=== PATIENT | female | born 1955 | race Caucasian/White ===

== ENCOUNTER 2018-05-15 19:30 | Outpatient (CLI) | payer BC | END 2018-05-15 19:31 | disposition home or self-care (01) | LOC: SLEEPLAB 19:30 | PROVIDERS: ATTEND Internal Medicine Pulmonary Disease | DX: G47.33 Obstructive sleep apnea (adult) (pediatric) (principal); R53.83 Other fatigue; E66.9 Obesity, unspecified; I11.0 Hypertensive heart disease with heart failure; I50.9 Heart failure, unspecified | CPT/HCPCS: 95811 ==

== ENCOUNTER 2018-06-21 14:04 | Outpatient (CLI) | payer BC | END 2018-06-21 14:05 | disposition home or self-care (01) | LOC: BICMAMMO 14:04 | PROVIDERS: ATTEND Nurse Practitioner Family | DX: Z12.31 Encounter for screening mammogram for malignant neoplasm of breast (principal); R92.1 Mammographic calcification found on diagnostic imaging of breast | CPT/HCPCS: 77063; 77067 ==

== ENCOUNTER 2018-06-28 09:44 | Outpatient (CLI) | payer BC | END 2018-06-28 09:45 | disposition home or self-care (01) | LOC: BICMAMMO 09:44 | PROVIDERS: ATTEND Nurse Practitioner Family | DX: R92.1 Mammographic calcification found on diagnostic imaging of breast (principal) | CPT/HCPCS: G0279 ==

== ENCOUNTER → 2018-07-16 | Day surgery (SDC) | payer BC ==
--- NOTE | 2018-07-16 10:47 | MMO ---
SPECIMEN RADIOGRAPH: Date: 07/16/18 INDICATION: Status post ultrasound guided left breast biopsy, calcifications of deep central left breast. FINDINGS: Specimen radiographs are submitted. There is evidence of calcification within the radiographed specim ens. IMPRESSION: Specimen radiographs reveal calcifications within the biopsied, radiographed specimens. POS: JOSE
--- NOTE | 2018-07-16 10:50 | MMO ---
POSTPROCEDURAL DIAGNOSTIC LEFT MAMMOGRAM: Date: 07/16/18 CLINICAL HISTORY: Status post ultrasound guided biopsy of left breast, calcifications of the deep central left breast. FINDINGS: Two views of the left breast reveal evidence of recent biopsy with air density traversing the central left breast, which does approximate the site of clustered calcifications of interest, centrally and deep within the left breast. Biopsy marking clip was deployed, which is located just posterior, and c ephalad to the clustering. This clip does not reside within the notable air tract from the biopsy and therefore may be related to clip migration. IMPRESSION: Status post left breast biopsy with post biopsy findings, and marking clip of the left breast. POS: JOSE
--- NOTE | 2018-07-16 11:29 | ULT ---
DIAGNOSTIC LEFT MAMMOGRAM: Date: 07/16/18 INDICATION: Left breast calcifications, deep central left breast. Patient had presented for stereotactic biopsy, although due to technical factors, stereotactic biopsy could not be performed. Therefore, patient was transferred to the ultrasound department in an attemp t to localize the calcifications within the left breast. FINDINGS: Deep within the central left breast, there is a grouping of calcifications identified. IMPRESSION: BIRADS 4: Suspicious Abnormality - Biopsy Should Be Considered Cluster of calcifications deep within the left breast in a region operations engineer to mammographic calci fications are present, warranting further evaluation with biopsy. Ultrasound guided biopsy will be performed, subsequently. POS: JOSE
--- NOTE | 2018-07-16 11:53 | ULT ---
ULTRASOUND GUIDED LEFT BREAST BIOPSY ULTRASOUND GUIDED LEFT BIOPSY MARKING CLIP PLACEMENT: Date: 07/16/18 INDICATION: Calcifications not amenable to stereotactic biopsy, with localization performed sonographically. Calc ifications reside within the deep central left breast. PROCEDURE: Informed consent was obtained from the patient. The patient was escorted to the procedural suite and placed in a supine position. The left breast was prepped and draped in the standard sterile fashion. Topical anesthesia was achieved with buffered 1% lidocaine. A small skin incision was made. Using a 1 3.5 gauge trocar, advancement within the left breast to the site of calcifications was performed and documented with imaging. The inner stylette of the trocar was removed and was exchanged for a 14 gaug e biopsy needle. Subsequently, four core specimens were acquired, with imaging stored for documentati on. The needle and trocar were then removed. Specimens were sent to radiography for confirmation of c alcifications. Subsequently, biopsy marking clip was advanced to and deployed within the site of calc ifications. This was confirmed with imaging and stored for documentation. No procedural complications. Postprocedural radiography of the specimens did reveal calcifications present. IMPRESSION: Technically successful ultrasound guided biopsy of the left breast. Pathology results are pending. Alan escobedo will be notified of results when they are received. POS: JOSE
== END ==
LOC: MAMMO 06:46
PROVIDERS: ATTEND Nurse Practitioner Family
PROC: 0HBU3ZX Excision of Left Breast, Percutaneous Approach, Diagnostic (ICD-10-PCS; principal; 2018-07-16)
DX: N60.92 Unspecified benign mammary dysplasia of left breast (principal); N60.32 Fibrosclerosis of left breast; Z79.899 Other long term (current) drug therapy
CPT/HCPCS: 19083; 76098; 88305; 88341; 88342

== ENCOUNTER 2018-07-19 07:24 | Inpatient (IN) | payer BC ==
[~2018-07-19 07:24] MED LIST: Lidocaine 1% PF 5 ML VIAL ONE; Sodium Bicarbonate 2.5 MEQ/5 ML VIAL ONE
[2018-07-19 08:09] LABS: #Eosinphils 0.1 thou/uL (0.0-0.7); #Lymphocytes 1.5 thou/uL (1.20-3.40); #Monocytes 0.9 thou/uL (0.11-0.59); #Neutrophils 11.3 thou/uL (1.40-6.50); %Basophils 0.1 % (0.0-1.0); %Monocytes 6.8 % (0.0-10.0); %Neutrophils 81.2 % (42.0-75.0); Hemoglobin 15.5 g/dL (12.0-16.0); Mean Corpuscular HGB CONC 32.2 g/dL (32.0-36.0); Mean Corpuscular Hemoglobin 28.5 pg (27.0-31.0); Mean Corpuscular Volume 88.6 fL (78.0-98.0); Mean Platelet Volume 8.7 fL (7.4-10.4); Platelet Count 182 thou/uL (130-400); RBC Distribution Width 15.3 % (11.5-14.5); Red Blood Cell (RBC) Count 5.44 mill/uL (4.20-5.40); White Blood Cell (WBC) Count 13.9 thou/uL (4.8-10.8)
[2018-07-19 08:33] LABS: ALT (SGPT) 231 U/L (8-55); AST (SGOT) 139 U/L (5-34); Albumin 3.7 g/dL (3.4-4.8); Alkaline Phosphatase 302 U/L (40-150); Anion Gap 16 mmol/L (10-20); BUN (Urea Nitrogen) 10 mg/dL (9.8-20.1); Bilirubin, Total 2.2 mg/dL (0.2-1.2); CK (CPK) 33 U/L (29-168); Calc. Creatinine Clearance 0 mL/min (70-130); Calcium 9.3 mg/dL (7.8-10.44); Carbon Dioxide 23 mmol/L (23-31); Chloride 104 mmol/L (98-107); Estimated GFR-MDRD 86; Globulin 2.8 g/dL (2.4-3.5); Glucose 135 mg/dL (80-115); Lipase 435 U/L (8-78); Potassium 3.9 mmol/L (3.5-5.1); Protein, Total 6.5 g/dL (6.0-8.3); Sodium 139 mmol/L (136-145)
[2018-07-19 08:34] LABS: CKMB 0.8 ng/mL (0-6.6); Troponin I Less than 0.010 ng/mL (< 0.028)
[2018-07-19] MEDS ORDERED: Ondansetron HCl/PF 4 MG/2 ML Vial ONE (09:47)
--- NOTE | 2018-07-19 09:52 | RAD ---
FRONTAL VIEW CHEST: Date: 07/19/18 INDICATION: Epigastric pain. COMPARISON: 03/23/18. FINDINGS: No free air beneath the hemidiaphragms. Cardiac silhouette is prominent, as is pulmonary vasculature. There is interstitial prominence of each lung. Chest otherwise similar. IMPRESSION: Evidence of fluid overload, likely related to CHF. Correlate clinically. POS: JOSE
[2018-07-19 10:05] LABS: Blood, Urine Negative (Negative); Leukocyte Negative (Negative); Protein, Urine (Dipstick) Trace mg/dL (Neg-Trace); pH, Urine 5.5 (5.0-9.0)
[2018-07-19 10:12] LABS: Clarity Cloudy (Clear)
[2018-07-19 10:13] LABS: Bilirubin Unable to Interpret (Negative); Glucose, Urine (Dipstick) Unable to Interpret mg/dL (Negative); Nitrite Unable to Interpret (Negative)
[2018-07-19 10:15] LABS: Specific Gravity, Urine 1.019 (1.002-1.036)
[2018-07-19 10:33] LABS: Bacteria/HPF 1+ HPF (None Seen); Crystals/HPF 4+ AMORPH URATES HPF (Negative); Hyaline Casts/LPF NONE SEEN LPF (0-3 Hyaline); RBC/HPF 0-3 HPF (0-3); WBC/HPF 0-3 HPF (0-3)
--- NOTE | 2018-07-19 11:35 | ULT ---
ULTRASOUND ABDOMEN LIMITED: (RIGHT UPPER QUADRANT) Date: 07/19/18 HISTORY: 63-year-old female with right upper quadrant abdominal pain. FINDINGS: Visualization of the right lobe of the liver is very poor because of body habitus. The left lobe of t he liver has normal echogenicity. Common duct caliber is normal, 4 mm. There is a dependent fine layer of numerous tiny mobile gallstones within the body and fundus of the gallbladder. No sonographic Peguero's sign. No pericholecystic fluid. No definite gallbladder wall thi ckening. Right kidney has no hydronephrosis. Pancreas has nonspecific sonographic appearance. IMPRESSION: Positive for cholelithiasis. LEEROY Ruiz POS: CET
[2018-07-19] MEDS ORDERED: Levofloxacin 500 mg/D5W 100 ml Premix Bag ONE (11:36)
[2018-07-19] MEDS ORDERED: Fentanyl 100 MCG/2 ML VIAL ONE (12:17)
[2018-07-19] MEDS ORDERED: Ketorolac Tromethamine 30 MG/ML VIAL ONE (12:27)
[2018-07-19] MEDS ORDERED: Scopolamine 1.5 mg/72 hour Patch ONE (12:27)
[2018-07-19] MEDS ORDERED: Bupivacaine HCl 0.5%/Epinephrine 1:200,000/PF 30 ml Vial ONE (12:28)
[2018-07-19] MEDS ORDERED: Iothalamate Meglumine 60% 50 ML VIAL FS ONE ×3 (12:28→14:06)
[2018-07-19] MEDS ORDERED: HumaLOG 300 UNITS/3 ML VIAL SC PRN (14:11)
[2018-07-19] MEDS ORDERED: Dextrose 5% in Water 1,000 ML IV PRN (14:11)
[2018-07-19] MEDS ORDERED: Ondansetron ODT 4 MG TAB PO PRN (14:11)
[2018-07-19] MEDS ORDERED: hydrALAZINE 20 MG/ML VIAL SLOW IVP PRN (14:11)
[2018-07-19] MEDS ORDERED: Ondansetron HCl/PF 4 MG/2 ML Vial IVP PRN ×2 (14:11→15:05)
[2018-07-19] MEDS ORDERED: Dextrose 50% Abboject 50 ML SYRINGE SLOW IVP PRN (14:11)
[2018-07-19] MEDS ORDERED: Ketorolac Tromethamine 30 MG/ML VIAL IVP PRN (14:16)
[2018-07-19] MEDS ORDERED: Acetaminophen 500 MG TAB PO PRN (14:16)
[2018-07-19] MEDS ORDERED: traMADol HCl 50 MG TAB PO PRN ×2 (14:16)
[2018-07-19] MEDS ORDERED: SUGAMMADEX SODIUM 200 MG/2 ML VIAL ONE (14:55)
[2018-07-19] MEDS ORDERED: Promethazine HCl 25 MG/ML VIAL IM PRN (15:05)
[2018-07-19] MEDS ORDERED: Promethazine HCl 25 MG/ML VIAL SLOW IVP PRN (15:05)
--- NOTE | 2018-07-19 15:20 | OP ---
PREOPERATIVE DIAGNOSES: Morbid obesity, acute and chronic cholecystitis and cholelithiasis, possible choledocholithiasis. POSTOPERATIVE DIAGNOSES: Chronic and acute cholecystitis, cholelithiasis, choledocholithiasis. PROCEDURE: Laparoscopic video cholecystectomy, positive cholangiograms, using fluoroscopy. Note con trast into the duodenum, but there were multiple filling defects in the common bile duct, which was d ilated more so than appreciated on ultrasound. SURGEON: Dr. Lele Cantu. ANESTHESIA: General. Local 0.5% Marcaine with epinephrine 30 mL PROCEDURE IN DETAIL: The patient was taken to the operating room, where under general anesthesia, ab roberts was prepared with ChloraPrep and draped in routine fashion. The patient had a prior supraumbil ical incision for an incarcerated hernia, thus a right midclavicular subcostal incision made. Pneumo peritoneum to 15 mmHg obtained with the Veress needle, replacing it with a 5 port and video laparosco pe inserted. There were adhesions about the umbilicus. Thus, a right upper abdominal paramedian inc ision made and a 5 port placed under laparoscopic visualization. Right subxiphoid incision made and 11 port placed. Right lateral subcostal incision made, a 5 port placed video laparoscope moved to th e lower abdominal incision and liver appeared to be normal despite for morbid obesity. Fundus of gal lbladder grasped and reflected cephalad. Infundibulum grasped and reflected laterally. Cystic arter y and duct dissected free carefully. Critical view obtained. Cystic artery and duct identified. Cy stic artery double clipped proximally. Cystic duct singly clipped on the gallbladder side. Opening made in the cystic duct and cholangiocath inserted and cholangiogram was obtained revealing free flow of contrast into the duodenum with dilated common bile and common hepatic duct, left and right hepat ic duct with filling defects, multiple in the common bile duct. This was flushed with saline. Chola ngiogram was repeated revealing the same information. Cholangiocath removed. Cystic duct stump doub ly clipped and divided. Gallbladder dissected free from liver bed obtaining good hemostasis prior to division of final felt attachments. Gallbladder and contents removed and submitted to pathology wer e multiple small stones. Liver bed inspected. Good hemostasis noted and obtained with the cautery. Good hemostasis ensured. All instruments removed and all skin incisions approximated with interrupt ed subdermal 4-0 Monocryl after pneumoperitoneum and irrigant evacuated. The patient tolerated the p rocedure well. The patient was transported to the Endo suite for Dr. Bauer to performed the ERCP.
--- NOTE | 2018-07-19 15:22 | RAD ---
INTRAOPERATIVE CHOLANGIOGRAM: DATE: 07/19/18. HISTORY: Laparoscopic cholecystectomy with cholangiogram. FINDINGS: Two intraoperative fluoroscopic images of the right upper quadrant are submitted for interpretation. Multiple surgical instruments overlie the right upper quadrant. Surgical clips are seen in the righ t upper quadrant. The cystic duct is cannulated. There is opacification of intra- and extrahepatic bile ducts which are mildly prominent in size. There are multiple round filling defects seen within the distal aspect of the common duct. These filling defects may be related to either retained calcul i or possibly related to air bubbles. There is evidence of free spill of contrast into the small bow el. No additional filling defects are seen within the common duct. IMPRESSION: 1. Multiple filling defects within the distal common duct which may be attributable to air bubbles o r possibly related to calculi within the distal common duct. Correlation with intraoperative finding s is recommended. There is evidence of free spill of contrast into the duodenum. 2. Suggestion of mild dilatation of the common duct and most proximal intrahepatic bile ducts. POS: CICI
--- NOTE | 2018-07-19 15:51 | RAD ---
SINGLE VIEW FROM ERCP: Comparison: None. FINDINGS: The single submitted image demonstrates cannulization in the region of the common bile duct extending into the right hepatic biliary system. Surgical clips are seen within the left upper quadrant which may represent sequellae of prior cholecystectomy. IMPRESSION: Single intraprocedure fluoroscopic image of ERCP. POS: JOSE
--- NOTE | 2018-07-19 16:49 | OP ---
PREOPERATIVE DIAGNOSIS: Choledocholithiasis by intraoperative cholangiogram. PROCEDURE IN DETAIL: After informed consent was obtained, the patient placed in left lateral decubit us position. Anesthesia was administered per the Anesthesia Department for side-viewing endoscope wa s inserted into the esophagus under direct visualization with ease and passed to the second portion o f the duodenum with ease. Second portion of the duodenum was normal. No mucosal abnormalities were noted. A tapered-tip cannula was inserted in the common duct and cholangiogram revealed filling defe cts. A large sphincterotomy was performed and the duct was swept with a 12 mm balloon revealing mult iple stones. Occlusion cholangiogram performed showed no filling defects. ASSESSMENT: 1. Choledocholithiasis. 2. Status post sphincterotomy and stone extraction. RECOMMENDATIONS: Recheck LFTs.
[2018-07-19 17:10] VITALS: BMI 61.4
--- NOTE | 2018-07-19 18:02 | CON ---
DATE OF CONSULTATION: 07/19/2018 HISTORY OF PRESENT ILLNESS: Patient is a 63-year-old female undergoing a laparoscopic chol ecystectomy by Dr. Cantu today and was noted to have an abnormal intraoperative cholangiogram showin g multiple filling defects. She is unable to add the history of present illness at this time, she is intubated from surgery. PAST MEDICAL HISTORY: Significant for diabetes mellitus, morbid obesity, hypertension. PAST SURGICAL HISTORY: Appendectomy, hysterectomy, herniorrhaphy, breast biopsy, right knee surgery, right foot surgery. ALLERGIES: No known allergies. MEDICATIONS: Include Toprol 50 mg 1 p.o. q. day, losartan 50 mg p.o. b.i.d., metformin 500 mg 1 p.o. b.i.d., spironolactone 25 mg 1 p.o. q. day, Lasix 40 mg 1 p.o. q. day. SOCIAL HISTORY: The patient does not smoke or drink. She is a retired teacher. FAMILY HISTORY: Negative for GI or liver disease. REVIEW OF SYSTEMS: Unobtainable. PHYSICAL EXAMINATION: GENERAL: She is an obese female, intubated from the surgery. HEENT: Shows orotracheal tube in place. NECK: Supple. CHEST: Clear. CARDIOVASCULAR: Regular rate and rhythm. ABDOMEN: Soft, nontender. She has a bandaged area of where cholecystectomy was performed. EXTREMITIES: Normal. RECTAL: Deferred. LABORATORY DATA: Shows a white blood cell count 13.9, hemoglobin 15.5, hematocrit 48.2. Chemistries show a glucose 135, total bilirubin 2.2, AST 139, ALT 231, alkaline phosphatase 302. Lipase 435. ASSESSMENT: 1. Choledocholithiasis by intraoperative cholangiogram. 2. Mild lipase elevation. 3. Diabetes mellitus. 4. Hypertension. RECOMMENDATIONS: Proceed with ERCP.
[2018-07-19] MEDS ORDERED: Enoxaparin Sodium 40 MG/0.4 ML SYRINGE SC SCH (21:00)
[2018-07-19] MEDS: Famotidine 20 MG TAB PO SCH (22:03)
[2018-07-19] MEDS: Lactated Ringer's 1,000 ML IV SCH ×2 (22:03→22:23)
--- NOTE | 2018-07-19 23:47 | HP ---
HISTORY OF PRESENT ILLNESS: Arlet Walker is a 63-year-old female, morbidly obese, 173 kg, 382 pounds, two-week history of right upper quadrant epigastric pain, nausea, and back radiation. her med ications this morning. Otherwise, there has been n.p.o. She was seen in the emergency room, white c ount 13, hemoglobin 15, bilirubin 2.2. AST, ALT 139 and 231 respectively, alkaline phosphatase 302, lipase 435, undergoing an ultrasound of her abdomen noting cholecystitis and cholelithiasis with comm on bile duct 4 mm. Nonspecific sonographic appearance. No hydronephrosis. ALLERGIES: None. TOBACCO: None. ALCOHOL: None. MEDICATIONS: Metoprolol 25 mg a day, which she took this morning. Losartan 25 mg twice a day, metfo rmin 500 mg twice a day, spironolactone 25 mg a day, Lasix 40 mg a day. PAST MEDICAL HISTORY: Hypertension, diabetes mellitus, chronic venous stasis disease, history of low er extremity cellulitis related to that. The patient was hospitalized earlier this year diagnosed wi th congestive heart failure, had an echocardiogram read by Dr. Martinez on 03/24/2018. Normal appear ing EF, difficult to access due to obesity, but she did have moderate tricuspid regurgitation. CAT s can of abdomen and pelvis on 09/08/2016, ventral hernia, small bowel and colon, umbilical area, diver ticulosis. PAST SURGICAL HISTORY: Transvaginal hysterectomy without oophorectomy, incarcerated umbilical hernia repair with mesh on 09/08/2016, colonoscopy a year ago. FAMILY HISTORY: Grandfather and father had coronary disease. . REVIEW OF SYSTEMS: [place] noncontributory. She has been seeing Dr. Martinez in his office. Morb id obesity, 173 kilograms, currently 382 pounds. She was 510 pounds last year, but lost 120 pounds i ntentionally and she works out at the [employer] with [employer] 2-3 times a week and has been changing her dietary intake, successfully losing weight. PHYSICAL EXAMINATION: VITAL SIGNS: 173 kg, 382 pounds. HEENT: Unremarkable. LUNGS: Clear to auscultation. CARDIAC: Regular rate and rhythm without murmur or gallop. ABDOMEN: Soft, tenderness in right upper quadrant with guarding rebound, positive Peguero's. EXTREMITIES: Unremarkable. Chronic venous stasis disease, morbid obesity. NEUROLOGICAL: Intact. No focal deficits. ASSESSMENT AND PLAN: 1. Acute cholecystitis. Recommend laparoscopic video cholecystectomy, common bile duct is 4 mm. Li lon function tests are elevated, suggesting acute cholecystitis. She has received Levaquin, scopolam ine patch, Toradol, Ofirmev, taken Hibiclens bath and plan is for laparoscopic cholecystectomy, chola ngiogram, possible ERCP with Dr. Bauer if indicated based on cholangiograms. Risk of infection, bleed ing, visceral injury explained. Chance of an open operation discussed. Possibility of ERCP with adh erent risk of pancreatitis discussed. 2. Probably some degree of biliary pancreatitis. 3. Morbid obesity with intentional weight loss 120 pounds. Continue weight loss efforts. 4. Diabetes mellitus, type 2. 5. Hypertension. 6. Chronic venous stasis disease. 7. Diagnosed with congestive heart failure recently, followed by Dr. Martinez.
[2018-07-20 06:15] LABS: ALT (SGPT) 215 U/L (8-55); AST (SGOT) 118 U/L (5-34); Albumin 3.5 g/dL (3.4-4.8); Alkaline Phosphatase 264 U/L (40-150); Anion Gap 12 mmol/L (10-20); BUN (Urea Nitrogen) 12 mg/dL (9.8-20.1); Calc. Creatinine Clearance 224 mL/min (70-130); Calcium 9.3 mg/dL (7.8-10.44); Carbon Dioxide 27 mmol/L (23-31); Chloride 101 mmol/L (98-107); Estimated GFR-MDRD 83; Globulin 3.4 g/dL (2.4-3.5); Glucose 116 mg/dL (80-115); Lipase 34 U/L (8-78); Protein, Total 6.9 g/dL (6.0-8.3); Sodium 136 mmol/L (136-145)
[2018-07-20 06:36] LABS: Band 11 % (5-11); Lymphocytes 8 % (21-51); MDiff Complete? YES; Mean Corpuscular HGB CONC 31.6 g/dL (32.0-36.0); Mean Corpuscular Hemoglobin 28.1 pg (27.0-31.0); Mean Corpuscular Volume 89.1 fL (78.0-98.0); Mean Platelet Volume 8.7 fL (7.4-10.4); Monocytes 3 % (0-10); Neutrophil 78 % (42-75); PLT Morphology Comment Appears Adequate; Platelet Count 200 thou/uL (130-400); RBC Distribution Width 15.4 % (11.5-14.5); Red Blood Cell (RBC) Count 5.34 mill/uL (4.20-5.40); White Blood Cell (WBC) Count 14.8 thou/uL (4.8-10.8)
[2018-07-20] MEDS: Famotidine 20 MG TAB PO SCH (08:27)
[2018-07-20 08:48] VITALS: BP 119/64; TEMP 98.2
[2018-07-20] MEDS ORDERED: Polyethylene Glycol 3350 17 GM Packet PO SCH (09:00)
--- NOTE | 2018-07-20 09:13 | PRG ---
DATE OF SERVICE: 07/20/2018 SUBJECTIVE: Ms. Arlet Walker is doing well today. She is tolerating her diet. She denies any signif icant pain. She has been ambulating. PHYSICAL EXAMINATION: VITAL SIGNS: 97.7 degrees, 79, 19, 128/69. LABORATORY DATA: This morning, her white count is 14, hemoglobin 15. Sodium 136, potassium 4.0, BUN 12, creatinine 0.71. Bilirubin 1. AST and ALT are at 118 and 215, respectively. Lipase 34. ASSESSMENT AND PLAN: Biliary pancreatitis, choledocholithiasis. Liver function tests improved after laparoscopic cholecystectomy, ERCP, Dr. Julio Bauer. PLAN: Discharge home. Resume home medications, Tylenol, ibuprofen for pain, Ultram as necessary. Carlos cates up in my office in 2-3 weeks.
--- NOTE | 2018-07-20 12:58 | DIS ---
DATE OF ADMISSION: 07/19/2018 DATE OF DISCHARGE: 07/20/2018 DISCHARGE DIAGNOSES: Cholecystitis, cholelithiasis, choledocholithiasis, morbid obesity, diabetes me llitus, and hypertension. DISCHARGE MEDICATIONS: Resume home medications, Nystatin; metformin; metoprolol; losartan; furosemid e; spironolactone; Tylenol; Motrin as needed for pain; tramadol as needed for pain, #20, one refill. Follow up in my office in 1-2 weeks. Diet and activity as tolerated. HISTORY: This is a 63-year-old female with an intentional weight loss of over 120 pounds, has experi enced biliary symptoms for several weeks with intolerable symptoms the last few days, presented to [facility] emergency room with slightly elevated liver function tests, normal bile duct caliber 4 mm. She und erwent laparoscopic video cholecystectomy. Cholangiogram is positive, and under the same anesthetic, she underwent ERCP, sphincterotomy, stone extraction by Dr. Bauer. By the next morning, liver functi on tests improved. She has tolerated her diet. She is discharged home with the above medications. Follow up in my office in 2-3 weeks. No dietary or activity restrictions.
--- NOTE | 2018-07-21 12:57 | EKG ---
Test Reason : Blood Pressure : / mmHG Vent. Rate : 072 BPM Atrial Rate : 072 BPM P-R Int : 292 ms QRS Dur : 094 ms QT Int : 420 ms P-R-T Axes : -08 -01 -12 degrees QTc Int : 459 ms Sinus rhythm with sinus arrhythmia with 1st degree A-V block Nonspecific ST abnormality Abnormal ECG Confirmed by MARIA LUJAN, YASMINE ([id number]), index editor DARCIE RIVAS ([id number] on 07/21/2018 12:56:46 PM Referred By: Confirmed By:YASMINE SIFUENTES MD
[2018-07-24] MEDS ORDERED: Ibuprofen 600 MG TAB PO PRN (20:00)
== END 2018-07-20 09:30 | disposition home or self-care (01) | DRG 417 ==
LOC: ERS 07:24 → SDC/OP 11:40 → SURG B 16:21
PROVIDERS: ADMIT Specialist; ATTEND Specialist
PROC: 0FT44ZZ Resection of Gallbladder, Percutaneous Endoscopic Approach (ICD-10-PCS; principal; 2018-07-19)
PROC: BF101ZZ Fluoroscopy of Bile Ducts using Low Osmolar Contrast (ICD-10-PCS; 2018-07-19)
DX: K80.66 Calculus of gallbladder and bile duct with acute and chronic cholecystitis without obstruction (principal); K85.90 Acute pancreatitis without necrosis or infection, unspecified; Z68.44 Body mass index [BMI] 60.0-69.9, adult; E11.9 Type 2 diabetes mellitus without complications; E66.01 Morbid (severe) obesity due to excess calories; I50.9 Heart failure, unspecified; I11.0 Hypertensive heart disease with heart failure; G47.33 Obstructive sleep apnea (adult) (pediatric)
CPT/HCPCS: 36415; 36416; 47532; 71045; 74330; 76705; 80053; 81003; 81015; 82553; 83690; 84484; 85025; 88304; 93005; 96374; 96375; J0131; J0670; J1610; J1650; J1885; J1956; J2001; J2270; J2405; J3010; Q9961

== ENCOUNTER 2021-10-09 14:04 | Outpatient (CLI) | payer MEDICARE | END 2021-10-09 14:05 | disposition home or self-care (01) | LOC: BICMAMMO 14:04 | PROVIDERS: ATTEND Family Medicine | DX: R92.8 Other abnormal and inconclusive findings on diagnostic imaging of breast (principal); R92.1 Mammographic calcification found on diagnostic imaging of breast | CPT/HCPCS: 77066; G0279 ==

== ENCOUNTER 2022-04-17 12:09 | Outpatient (CLI) | payer MEDICARE | END 2022-04-17 12:10 | disposition home or self-care (01) | LOC: BICULT 12:09 | PROVIDERS: ATTEND Family Medicine | DX: I10 Essential (primary) hypertension (principal); D75.1 Secondary polycythemia | CPT/HCPCS: 76770 ==

== ENCOUNTER 2024-12-28 17:28 | Inpatient (IN) | payer MEDICARE ==
[2024-12-28 18:20] LABS: #Basophils 0.06 10x3/uL (0.0-0.2); %Basophils 0.7 % (0.0-1.0); %Lymphocytes 9.5 % (21.0-51.0); %Monocytes 10.7 % (0.0-10.0); %Neutrophils 77.3 % (42.0-75.0); Hematocrit 48.5 % (36.0-47.0); Hemoglobin 15.3 g/dL (12.0-16.0); Mean Corpuscular HGB CONC 31.5 g/dL (32.0-36.0); Mean Corpuscular Hemoglobin 30.9 pg (27.0-31.0); Mean Platelet Volume 10.3 fL (7.4-10.4); Platelet Count 199 10x3/uL (130-400); RBC Distribution Width 14.6 % (11.5-14.5); Red Blood Cell (RBC) Count 4.95 mill/uL (4.20-5.40)
[2024-12-28] MEDS ORDERED: Aspirin Chewable 81 MG TAB ONE (18:35)
[2024-12-28 18:45] LABS: ALT (SGPT) 14 U/L (Less than 34); AST (SGOT) 28 U/L (11-34); Albumin 2.8 g/dL (3.1-4.5); Alkaline Phosphatase 95 U/L (40-110); Anion Gap 16 mmol/L (10-20); BUN (Urea Nitrogen) 15 mg/dL (9.8-20.1); Bilirubin, Total 1.2 mg/dL (0.3-1.2); Calc. Creatinine Clearance 0 mL/min (70-130); Calcium 9.3 mg/dL (7.8-10.44); Carbon Dioxide 36 mmol/L (23-31); Chloride 90 mmol/L (98-107); Estimated GFR 96; Globulin 3.6 g/dL (2.4-3.5); Glucose 125 mg/dL (80-115); Lipase 16 U/L (8-78); Magnesium 1.8 mg/dL (1.6-2.6); Potassium 4.2 mmol/L (3.5-5.1); Protein, Total 6.4 g/dL (5.8-8.1); Sodium 138 mmol/L (136-145)
[2024-12-28] MEDS ORDERED: Furosemide 40 MG (4 mL) VIAL ONE (19:49)
[2024-12-28 20:35] LABS: Actual Bicarbonate (HCO3v) 38.3 mEq/L (22-28); Base Excess 11.6 mEq/L (-2.0 to +3.0); Calcium, Ionized (venous) 1.04 mmol/L (1.16-1.32); Chloride (VBG) 91 mmol/L (98-106); Hematocrit-VBG 49 % (36.0-47.0); Hemoglobin (Hb) 16.6 g/dL (11.7-16.1); Potassium (VBG) 4.25 mmol/L (3.70-5.30); Sodium 138 mmol/L (133-146)
[2024-12-28] MEDS ORDERED: Glucagon 1 MG/ML KIT IM PRN (21:11)
[2024-12-28] MEDS ORDERED: Dextrose 5% in Water 1,000 ML IV PRN (21:11)
[2024-12-28] MEDS ORDERED: Dextrose 50% Abboject 50 ML SYRINGE SLOW IVP PRN (21:11)
[2024-12-28] MEDS ORDERED: Insulin Lispro 100 UNIT/ML 10 ML VIAL SC PRN ×2 (21:11)
[2024-12-28] MEDS ORDERED: Acetaminophen 325 MG TAB PO PRN (21:13)
[2024-12-28] MEDS ORDERED: Bisacodyl 5 MG TAB PO PRN (21:13)
[2024-12-28] MEDS ORDERED: Acetaminophen 650 MG Suppository PR PRN (21:13)
[2024-12-29] MEDS: Cephalexin 250 MG CAP PO SCH (02:00)
[2024-12-29 06:49] LABS: Anion Gap 16 mmol/L (10-20); BUN (Urea Nitrogen) 15 mg/dL (9.8-20.1); Calc. Creatinine Clearance 237 mL/min (70-130); Calcium 9.4 mg/dL (7.8-10.44); Carbon Dioxide 38 mmol/L (23-31); Chloride 90 mmol/L (98-107); Estimated GFR 96; Glucose 122 mg/dL (80-115); Potassium 3.4 mmol/L (3.5-5.1); Sodium 141 mmol/L (136-145)
[2024-12-29] MEDS: Furosemide 40 MG (4 mL) VIAL SLOW IVP SCH (06:57)
[2024-12-29] MEDS ORDERED: Nystatin Powder 15 GM BOT TOP PRN (08:25)
[2024-12-29] MEDS: Enoxaparin 40 MG (0.4 mL) SYRINGE SC SCH (09:58)
[2024-12-29] MEDS: Spironolactone 25 MG TAB PO SCH (09:58)
[2024-12-29] MEDS: Dapagliflozin Propanediol 10 MG TAB PO SCH (09:58)
[2024-12-29] MEDS: Potassium Chloride 20 MEQ TAB PO SCH (09:58)
[2024-12-29] MEDS: Lidocaine 4% Patch TD SCH (09:58)
[2024-12-29] MEDS: Aspirin 81 mg Enteric Coated Tablet PO SCH (09:58)
[2024-12-29] MEDS: metFORMIN 500 MG TAB PO SCH (10:00)
[2024-12-29] MEDS: Senokot S 8.6-50 MG TAB PO PRN (19:59)
[2024-12-29] MEDS: Transdermal Patch Removal TOP SCH (21:00)
[2024-12-29 23:36] VITALS: BMI 63.4
[2024-12-30 05:22] LABS: Anion Gap 19 mmol/L (10-20); BUN (Urea Nitrogen) 17 mg/dL (9.8-20.1); Calc. Creatinine Clearance 240 mL/min (70-130); Calcium 9.3 mg/dL (7.8-10.44); Carbon Dioxide 35 mmol/L (23-31); Chloride 93 mmol/L (98-107); Estimated GFR 97; Glucose 131 mg/dL (80-115); Potassium 4.1 mmol/L (3.5-5.1); Sodium 143 mmol/L (136-145)
[2024-12-30] MEDS: traMADol HCl 50 MG TAB PO PRN (06:20)
[2024-12-30] MEDS: Enoxaparin 40 MG (0.4 mL) SYRINGE SC SCH (20:50)
[2024-12-31 02:17] VITALS: BMI 64.7
[2024-12-31 07:14] LABS: Hematocrit 49.6 % (36.0-47.0); Hemoglobin 15.4 g/dL (12.0-16.0); Mean Corpuscular Hemoglobin 31.5 pg (27.0-31.0); Mean Corpuscular Volume 101.4 fL (78.0-98.0); Mean Platelet Volume 10.7 fL (7.4-10.4); Platelet Count 208 10x3/uL (130-400); RBC Distribution Width 14.9 % (11.5-14.5); Red Blood Cell (RBC) Count 4.89 mill/uL (4.20-5.40)
[2024-12-31 07:57] LABS: Anion Gap 18 mmol/L (10-20); BUN (Urea Nitrogen) 13 mg/dL (9.8-20.1); Calc. Creatinine Clearance 253 mL/min (70-130); Calcium 9.4 mg/dL (7.8-10.44); Carbon Dioxide 33 mmol/L (23-31); Chloride 93 mmol/L (98-107); Estimated GFR 97; Glucose 108 mg/dL (80-115); Potassium 3.9 mmol/L (3.5-5.1); Sodium 140 mmol/L (136-145)
[2024-12-31] MEDS: Furosemide 40 MG TAB PO SCH ×2 (11:51→12:34)
[2024-12-31] MEDS: Cefepime 2 GM in Sodium Chloride 0.9% 100 ML IVPB SCH (20:42)
[2024-12-31] MEDS: Famotidine 20 MG TAB PO SCH (20:42)
[2024-12-31] MEDS ORDERED: Furosemide 40 MG TAB PO SCH (21:00)
[2024-12-31] MEDS: Vancomycin (BATCH) 2.5 GM in Premix 1 BAG IVPB SCH (22:23)
[2025-01-01 07:34] LABS: Vancomycin, Random 19.8 ug/mL (See Comment)
[2025-01-01] MEDS: Furosemide 40 MG TAB PO SCH (08:05)
[2025-01-01] MEDS: Vancomycin 1.5 GRAM/300 ML BAG 1.5 GM in Premix 1 BAG IVPB SCH (09:50)
[2025-01-01] MEDS: Polyethylene Glycol 3350 17 GM Packet PO SCH (20:31)
[2025-01-01] MEDS: VANCOMYCIN 1.25 GM/250 ML BAG 1.25 GM in Premix 1 BAG IVPB SCH (20:34)
[2025-01-02 08:10] VITALS: TEMP 98.5
[2025-01-02 11:17] VITALS: BP 112/75
== END 2025-01-02 15:25 | disposition swing bed (61) | DRG 189 ==
LOC: ERS 17:28 → 2NO 21:18 → OBSVTOIN 12-29 13:41 → T4-B 12-30 20:12
PROVIDERS: ADMIT Family Medicine; ATTEND Internal Medicine
DX: J96.21 Acute and chronic respiratory failure with hypoxia (principal); I50.33 Acute on chronic diastolic (congestive) heart failure; L03.115 Cellulitis of right lower limb; Z68.44 Body mass index [BMI] 60.0-69.9, adult; E11.22 Type 2 diabetes mellitus with diabetic chronic kidney disease; E66.01 Morbid (severe) obesity due to excess calories; G47.33 Obstructive sleep apnea (adult) (pediatric); I11.0 Hypertensive heart disease with heart failure; E87.6 Hypokalemia; Z90.710 Acquired absence of both cervix and uterus; Z98.890 Other specified postprocedural states; Z79.899 Other long term (current) drug therapy; Z79.82 Long term (current) use of aspirin; Z79.84 Long term (current) use of oral hypoglycemic drugs; Z90.49 Acquired absence of other specified parts of digestive tract; I27.81 Cor pulmonale (chronic); I27.21 Secondary pulmonary arterial hypertension; R29.6 Repeated falls; I07.1 Rheumatic tricuspid insufficiency; M17.11 Unilateral primary osteoarthritis, right knee; T50.1X6A Underdosing of loop [high-ceiling] diuretics, initial encounter; Z91.148 Patient's other noncompliance with medication regimen for other reason; Z91.199 Patient's noncompliance with other medical treatment and regimen due to unspecified reason
CPT/HCPCS: 36415; 36416; 71045; 71275; 80048; 80053; 80202; 82805; 83605; 83690; 83735; 83880; 84484; 85025; 85027; 85379; 86141; 87081; 93005; 93306; 94760; 96372; 96374; 96376; 97139; G0378; J0692; J1650; J1815; J1940; J3370; J3475; Q9967